=== PATIENT | male | born 1960 | race Caucasian/White ===

== ENCOUNTER → 2016-10-07 | Outpatient (CLI) | payer MEDICARE, SELFPAY ==
[~2016-10-07] VITALS: Ht 170.2 cm; Wt 83.5 kg
== END ==
LOC: OPSV 07:07
DX: M06.9 Rheumatoid arthritis, unspecified (principal)
CPT/HCPCS: 96413; 96415; J1745

== ENCOUNTER → 2016-10-14 | Outpatient (CLI) | payer MEDICARE, OTHER | LOC: RAD 14:02 | DX: M25.511 Pain in right shoulder (principal) | CPT/HCPCS: 73030 ==

== ENCOUNTER → 2020-08-28 | Outpatient (CLI) | payer MEDICARE, SELFPAY ==
[2020-08-28 14:24] LABS: BUN/CREATININE RATIO 8 (0-10)
[2020-08-31 15:11] LABS: A/G RATIO 1.3 (0.7-1.7); ALPHA-1-GLOBULIN 0.2 g/dL (0.0-0.4); ALPHA-2-GLOBULIN 0.7 g/dL (0.4-1.0); BETA GLOBULIN 1.2 g/dL (0.7-1.3); GAMMA GLOBULIN 1.1 g/dL (0.4-1.8); GLOBULIN, TOTAL 3.2 g/dL (2.2-3.9); M-SPIKE Not Observed g/dL (Not Observed); PROTEIN, TOTAL, SERUM 7.2 g/dL (6.0-8.5)
== END ==
LOC: LAB 13:13
PROVIDERS: Physician Assistant Medical
DX: M81.0 Age-related osteoporosis without current pathological fracture (principal); I10 Essential (primary) hypertension; G47.30 Sleep apnea, unspecified
CPT/HCPCS: 36415; 80053; 82523; 83937; 83970; 84100; 84155; 84165; 84443

== ENCOUNTER → 2020-09-09 | Outpatient (CLI) | payer MEDICARE, SELFPAY | LOC: EXRD 09-03 13:00 | DX: M81.0 Age-related osteoporosis without current pathological fracture (principal) | CPT/HCPCS: 77080 ==

== ENCOUNTER → 2020-10-19 | Outpatient (CLI) | payer MEDICARE, OTHER | LOC: LAB 14:54 | DX: E78.5 Hyperlipidemia, unspecified (principal) | CPT/HCPCS: 80061 ==

== ENCOUNTER → 2020-11-11 | Outpatient (CLI) | payer MEDICARE, OTHER | LOC: RAD 14:35 | PROVIDERS: Physician Assistant | DX: M54.5 Low back pain (principal); R94.4 Abnormal results of kidney function studies; M47.816 Spondylosis without myelopathy or radiculopathy, lumbar region | CPT/HCPCS: 36415; 72100; 80048 ==

== ENCOUNTER → 2020-12-03 | Outpatient (CLI) | payer MEDICARE | LOC: LAB 10:06 | PROVIDERS: Physician Assistant | DX: N28.9 Disorder of kidney and ureter, unspecified (principal); M25.512 Pain in left shoulder | CPT/HCPCS: 36415; 73030; 80048 ==

== ENCOUNTER 2021-07-17 07:37 | Emergency (ER) | payer MEDICARE | END 2021-07-17 08:28 | disposition left against medical advice (07) | LOC: ER1 07:37 | DX: Z53.21 Procedure and treatment not carried out due to patient leaving prior to being seen by health care provider (principal) ==

== ENCOUNTER → 2021-08-17 | Outpatient (CLI) | payer MEDICARE | LOC: RAD 13:39 | DX: S89.91XA Unspecified injury of right lower leg, initial encounter (principal) | CPT/HCPCS: 73562 ==

== ENCOUNTER → 2021-08-26 | Outpatient (CLI) | payer MEDICARE | LOC: KOH-I 07-23 15:15 | DX: M54.50 Low back pain, unspecified (principal); M85.89 Other specified disorders of bone density and structure, multiple sites; M48.061 Spinal stenosis, lumbar region without neurogenic claudication; Z98.1 Arthrodesis status; M47.816 Spondylosis without myelopathy or radiculopathy, lumbar region | CPT/HCPCS: 72148 ==

== ENCOUNTER 2021-11-16 19:28 | Emergency (ER) | payer MEDICARE ==
[2021-11-16 20:34] LABS: HEMOGLOBIN 15.3 gm/dl (14.0-17.5); RED BLOOD COUNT 5.28 M/UL (4.20-5.50); WHITE BLOOD COUNT 9.5 K/UL (4.5-11.0)
[2021-11-16 21:01] LABS: BUN/CREATININE RATIO 9 (0-10)
== END 2021-11-17 00:20 | disposition home or self-care (01) ==
LOC: ER1 19:28
PROVIDERS: Family Medicine
DX: R94.31 Abnormal electrocardiogram [ECG] [EKG] (principal)
CPT/HCPCS: 71046; 80053; 82550; 82553; 84484; 85025; 93005; 99285